=== PATIENT | female | born 1985 | race Caucasian/White ===

== ENCOUNTER → 2016-04-13 | Outpatient (CLI) | payer BC ==
[~2016-04-13] MED LIST: LEVO75TA5 PO; PREN1TAB29
[2016-04-13 17:37] LABS: GTGD 50 Grams
[2016-04-13 18:02] LABS: THYROID STIMULATING HORMONE 2.64 uIu/ml (0.300-4.500)
[2016-04-15 14:49] LABS: AFP CONCENTRATION 45.5 NG/ML; AFPTS GESTATIONAL AGE 16.1 WEEKS; AFPTS INSULIN DEP DIABETIC? NO; AFPTS MATERNAL WT 254 LBS; ALPHA-FETOPROTEIN RACE CAUCASIAN=W; EDD DETERMINED BY ULTRASOUND; ESTRIOL MULTIPLE OF MEDIAN 0.88; HISTORY OF NTD NO; INHIBIN A 136 PG/ML; INHIBIN A MOM 1.01; REPEAT SAMPLE? NO; hCG MULTIPLE OF MEDIAN 1.68
== END | disposition home or self-care (01) ==
LOC: C.LAB1850 16:59
PROVIDERS: ATTEND Obstetrics & Gynecology
DX: E03.9 Hypothyroidism, unspecified (principal); O09.01 Supervision of pregnancy with history of infertility, first trimester

== ENCOUNTER → 2016-04-25 | Outpatient (CLI) | payer BC ==
[2016-04-25 10:03] LABS: PATIENT HEIGHT 170.2 cm
[2016-04-25 12:02] LABS: URINE TOTAL PROTEIN 6.4 mg/dl (0-11.9)
[2016-04-25 12:57] LABS: CREATININE 0.56 mg/dl (0.6-1.2); URINE TOTAL PROTEIN CALC 131.2 mg/24 hr (0-149.1)
== END | disposition home or self-care (01) ==
LOC: C.LAB1850 09:42
PROVIDERS: ATTEND Obstetrics & Gynecology
DX: O09.02 Supervision of pregnancy with history of infertility, second trimester (principal); O28.1 Abnormal biochemical finding on antenatal screening of mother; Z3A.00 Weeks of gestation of pregnancy not specified

== ENCOUNTER → 2016-06-13 | Outpatient (CLI) | payer BC ==
[2016-06-13 18:17] LABS: THYROID STIMULATING HORMONE 1.03 uIu/ml (0.300-4.500)
== END | disposition home or self-care (01) ==
LOC: C.LAB1850 16:43
PROVIDERS: ATTEND Obstetrics & Gynecology
DX: O99.282 Endocrine, nutritional and metabolic diseases complicating pregnancy, second trimester (principal); E03.9 Hypothyroidism, unspecified

== ENCOUNTER → 2016-07-11 | Outpatient (CLI) | payer BC ==
[2016-07-11 09:34] LABS: HEMATOCRIT 35.5 % (37-47)
[2016-07-11 09:37] LABS: URINE APPEARANCE CLEAR (CLEAR); URINE BILIRUBIN NEG (NEG); URINE COLOR YELLOW; URINE EPITHELIAL CELL AUTO 20-30 /lpf (0-5); URINE NITRITE NEG (NEG); URINE PH 7.5 (4.5-7.5); URINE SPECIFIC GRAVITY 1.017 (1.000-1.030); UROBILINOGEN NEG (NEG)
[2016-07-11 09:43] LABS: MANUAL MICROSCOPIC REQUIRED? NO; REVIEW REQ? NO
[2016-07-11 09:59] LABS: THYROID STIMULATING HORMONE 1.44 uIu/ml (0.300-4.500)
== END | disposition home or self-care (01) ==
LOC: C.LAB1850 08:08
PROVIDERS: ATTEND Obstetrics & Gynecology
DX: O09.03 Supervision of pregnancy with history of infertility, third trimester (principal); O99.282 Endocrine, nutritional and metabolic diseases complicating pregnancy, second trimester

== ENCOUNTER → 2016-08-17 | Outpatient (CLI) | payer BC ==
[2016-08-17 10:32] LABS: THYROID STIMULATING HORMONE 0.938 uIu/ml (0.300-4.500)
== END | disposition home or self-care (01) ==
LOC: C.LAB1850 09:15
PROVIDERS: ATTEND Obstetrics & Gynecology
DX: O99.282 Endocrine, nutritional and metabolic diseases complicating pregnancy, second trimester (principal)

== ENCOUNTER → 2016-09-05 | Outpatient (CLI) | payer BC | END | disposition home or self-care (01) | LOC: C.LABSPEC 17:27 | PROVIDERS: ATTEND Obstetrics & Gynecology | DX: O09.03 Supervision of pregnancy with history of infertility, third trimester (principal); Z3A.00 Weeks of gestation of pregnancy not specified ==

== ENCOUNTER 2016-09-25 19:06 | Outpatient (CLI) | payer BC ==
[~2016-09-25] VITALS: Ht 167.6 cm; Wt 127.0 kg
[2016-09-25] MEDS ORDERED: LEVO75TA5 PO (19:52)
[2016-09-25] MEDS ORDERED: PREN1TAB29 (19:52)
[2016-09-25 19:53] VITALS: Ht 167.6 cm; Wt 127.0 kg
== END 2016-09-25 20:29 | disposition home or self-care (01) ==
LOC: C.OPB 19:06 → C.LD 19:07 → C.OPB 20:29
PROVIDERS: ATTEND Obstetrics & Gynecology
DX: O16.3 Unspecified maternal hypertension, third trimester (principal); Z3A.39 39 weeks gestation of pregnancy

== ENCOUNTER 2016-09-26 07:24 | Inpatient (IN) | payer BC ==
[~2016-09-26] VITALS: Ht 167.6 cm; Wt 129.3 kg
[2016-09-26 08:19] VITALS: Ht 167.6 cm; Wt 129.3 kg
[2016-09-26 08:58] LABS: HEMATOCRIT 35.7 % (37-47); MEAN CELL VOLUME 86.2 fL (80-100); MEAN CORPUSCULAR HGB CONC 33.6 g/dl (32-36); MEAN PLATELET VOLUME 9.6 fL (7.4-10.4); PLATELET COUNT 266 K/uL (130-400); RED BLOOD COUNT 4.14 M/uL (4.2-5.4); WHITE BLOOD COUNT 14.48 K/uL (4.8-10.8)
[2016-09-26] MEDS ORDERED: LACTATED RINGER'S 1000ML 500 ML IV PRN ×2 (09:04→16:48)
[2016-09-26] MEDS ORDERED: OXYTOCIN 30 UNITS/500ML NSS IV PRN ×2 (09:15→22:30)
[2016-09-26] MEDS ORDERED: LACTATED RINGER'S 1000ML 1,000 ML IV SCH ×2 (09:30→22:21)
--- NOTE | 2016-09-26 11:30 | Medical Student: [facility] ---
Med Student History & Physical Date of Service Sep 26, 2016. Chief Complaint Induction History of Present Illness Source: patient Pt is a 31 y.o. F with , CHELSEY of 09/27/2016 by 1st trimester US, 39 and 6/7 weeks of GA, presents for induction of labor. She reports good movement, intact membranes, and no vaginal bleeding. Does not report contractions. course has been complicated by hypothyroidism for which pt takes synthroid and maternal chronic HTN. No loss of fluid/SROM or vaginal bleeding. has been followed by Everette Suarez Senior Manager Creative Services. 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 Menarche at age 16, LMP was 12/29/2015, no hx of abnormal pap smears Past Surgical History ACL surgery Family History no pertinent family hx Social History Smoking Status: Never Smoker Drug Use: none Marital Status: Occupational Status: employed Allergies Coded Allergies: No Known Allergies (Unverified , 09/25/16) Home Medications Levothyroxine Sodium (Levothyroxine Sodium), 1 TAB PO DAILY Vit W/ Ferrous Fumara () Physical Exam General Appearance: WD/WN, no apparent distress Respiratory/Chest: lungs clear, normal breath sounds, no respiratory distress Cardiovascular: regular rate, rhythm - HR regular with no gallops or murmurs - lungs clear to auscultation bilaterally - soft, non-tender gravid uterus - no pedal edema, no calf tenderness Monitoring External Monitor: Baseline HR 140, moderate variability, no deceleration, Category 1 tracing Tocodynamometer: mild, irregular contractions Laboratory Results 09/26/16 08:39 Test 09/26/16 08:39 Red Blood Count 4.14 M/uL (4.2-5.4) Mean Corpuscular Volume 86.2 fL (80-100) Mean Corpuscular Hemoglobin 29.0 pg (25-34) Mean Corpuscular Hemoglobin Concent 33.6 g/dl (32-36) RDW Standard Deviation 44.5 fL (36.4-46.3) RDW Coefficient of Variation 14.3 % (11.5-14.5) Mean Platelet Volume 9.6 fL (7.4-10.4) Assessment and Plan Pt is a 31 y.o. who presents for induction of labor. She desires to not use anything for pain control but is not opposed to having an epidural. heart tracing Category 1. - admit to L&D unit - routine maternal/ monitoring - begin pitocin - NPO except ice chips and clear liquid - consider AROM as fetus moves further down into pelvis - anticipate
[2016-09-26] MEDS ORDERED: EpHEDrine SULFATE INJ 50 MG/ML AMP ONE (16:05)
[2016-09-26] MEDS ORDERED: BUPIVACAINE 0.25% 30 ML VIAL ONE (16:05)
[2016-09-26] MEDS ORDERED: FENTANYL 2MCG/ML ROPIV 1.25MG/ML 100ML BAG EPI ONE (16:06)
[2016-09-26] MEDS ORDERED: FENTANYL CITRATE INJ 50 MCG/1 ML 2 ML VIAL ONE (16:06)
[2016-09-26] MEDS ORDERED: NALOXONE HCL INJ 1 MG in SODIUM CHLORIDE 0.9% 1000ML 1,000 ML IV PRN (16:48)
[2016-09-26] MEDS ORDERED: FENTANYL 2MCG/ML ROPIV 1.25MG/ML 100ML BAG EPI PRN (17:00)
[2016-09-26] MEDS ORDERED: NALBUPHINE HCL INJ 10 MG/ML AMP IV PRN (17:00)
[2016-09-26] MEDS ORDERED: ONDANSETRON INJ 2 MG/ML 2 ML VIAL IV PRN (17:00)
[2016-09-26] MEDS ORDERED: EpHEDrine SULFATE INJ 50 MG/ML AMP IV PRN (17:00)
[2016-09-26] MEDS ORDERED: NALOXONE HCL INJ 0.4 MG/1 ML VIAL/CARP IV PRN (17:00)
[2016-09-26] MEDS ORDERED: DiphenhydrAMINE HCL 50 MG/ML VIAL IV PRN (17:00)
[2016-09-26] MEDS ORDERED: DIPHTHERIA/TETANUS/PERTUSSIS 0.5 ML SYR/VIAL IM. ONE (22:30)
[2016-09-26] MEDS ORDERED: SUPERCREAM 0.870 % 15GM JAR EXT PRN (22:30)
[2016-09-26] MEDS ORDERED: LANOLIN OINT EXT PRN ×2 (22:30)
[2016-09-26] MEDS ORDERED: HYDROCORTISONE ACETATE 25 MG SUPP PR PRN (22:30)
[2016-09-26] MEDS ORDERED: ACETAMINOPHEN 325 MG TAB PO PRN (22:30)
--- NOTE | 2016-09-27 00:15 | DELIVERY SUMMARY ---
DATE OF OPERATION: 09/26/2016 PREOPERATIVE DIAGNOSES: 1. Martinez intrauterine at 39 and 6/7 weeks. 2. Chronic hypertension. 3. Induction of labor. POSTOPERATIVE DIAGNOSES: Same. PROCEDURE: Spontaneous vaginal delivery and repair of second degree laceration. SURGEON: Dr. Taylor. EXECUTIVE CREATIVE DIRECTOR: None. ESTIMATED BLOOD LOSS: 350. COMPLICATIONS: None. DISPOSITION: Stable in labor and delivery. DESCRIPTION OF PROCEDURE: Cyndy Matos is a G1, P0 who underwent induction of labor via Pitocin, artificial rupture of membranes, and an epidural for pain management. She reached complete dilation with an urge to push. I was called to the room at the time the head was . I quickly gowned and gloved for delivery. Through the next 2 pushes, she was able to bring the head to delivery. The restituted such that the right shoulder was anterior and the left shoulder was posterior. The remainder of the delivery was without any difficulty whatsoever. The vigorous was placed on the maternal abdomen where the cord was doubly clamped and cut. The placenta delivered spontaneously and was noted to be intact with a 3-vessel cord. There was a second degree perineal laceration that was repaired in the usual fashion. At the completion of delivery, the fundus was firm, lochia was minimal and mother and infant were both in good condition. I attest to the content of the Intraoperative Record and any orders documented therein. Any exception s are noted below.
[2016-09-27] MEDS: BENZOCAINE 20% AER SPR 82.5 GM CAN EXT PRN (00:28)
[2016-09-27 00:45] VITALS: BP 135/72; PULSE 116; TEMP 36.5
[2016-09-27 04:35] VITALS: BP 124/78; PULSE 89; TEMP 36.4
[2016-09-27] MEDS: OXYCODONE/ACETAMINOPHEN 5-325 TAB PO PRN ×2 (06:34→12:49)
[2016-09-27] MEDS: IBUPROFEN 600 MG TAB PO PRN ×3 (06:34→16:38)
[2016-09-27 06:35] LABS: HEMATOCRIT 33.5 % (37-47)
--- NOTE | 2016-09-27 07:03 | OB/GYN Progress Note ---
GI ASST Progress Note Date of Service Sep 27, 2016. Subjective conversation w/ patient, physical exam, chart review, lab review Ambulation: limited ambulation (up to bathroom) Voiding: no voiding problems Passing Gas: Yes Diet Tolerance: Regular Diet Lochia: Small Feeding Type: Breast Feeding Pain: Low abd discomfort and cramping Review of Systems Constitutional: No fever, No chills Respiratory: No cough, No shortness of breath Cardiac: No chest pain Abdomen: No nausea, No vomiting, No diarrhea Female : No dysuria Objective Vital Signs Date Time Temp Pulse Resp B/P (MAP) Pulse Ox O2 Delivery O2 Flow Rate FiO2 09/27/16 04:35 36.4 89 20 124/78 (93) Room Air 09/27/16 00:45 36.5 116 20 135/72 (93) Room Air 09/27/16 00:45 Room Air Physical Exam General Appearance: WELL-APPEARING, WD/WN, NO APPARENT DISTRESS Respiratory/Chest: lungs clear, normal breath sounds Cardiovascular: regular rate, rhythm Abdomen: normal bowel sounds, non tender, soft Fundus: Firm, Non-Tender, Relation to Umbilicus (approx at umbilicus) Extremities: normal range of motion, non-tender, no calf tenderness, + pedal edema, + swelling (bilateral 1+ leg edema, unchanged from yesterday) Laboratory Results Last 24 Hours Test 09/26/16 08:39 09/27/16 06:10 White Blood Count 14.48 K/uL Red Blood Count 4.14 M/uL Hemoglobin 12.0 g/dL 11.2 g/dL Hematocrit 35.7 % 33.5 % Mean Corpuscular Volume 86.2 fL Mean Corpuscular Hemoglobin 29.0 pg Mean Corpuscular Hemoglobin Concent 33.6 g/dl RDW Standard Deviation 44.5 fL RDW Coefficient of Variation 14.3 % Platelet Count 266 K/uL Mean Platelet Volume 9.6 fL Assessment and Plan Post- Day Number: 1 Continue Routine Care: 31yo s/p , now PPD #1. - Blood type O pos. GBS negative. Rubella immune. - Vital signs reviewed and stable. Rxed home thyroid medication for while here. - Pain controlled without PO meds thus far. - Has some symmetrical (B)LE edema but no tenderness on calf palpation or ankle ROM. Encourage ambulation. - Encourage breast feeding. - Hemoglobin pre-delivery 12.0, post-delivery 11.2. Bleeding has improved. Continue to monitor clinically. - Continue routine post-vaginal delivery care. - Pt agreed with above plan, all current questions answered. Toni Aguilar MD, PGY1 Calciner Operator Helper Physician Supervision Note: I interviewed and examined the patient. Discussed with Dr. Aguilar and agree with findings and plan as documented in the note. Any exceptions or clarifications are listed here: [None] Documented By: Fidelia Taylor Resident Tracking Resident Involvement: Resident Care Provided Care Provided: OB Delivery (morning rounds)
[2016-09-27] MEDS: LEVOTHYROXINE 75 MCG TAB PO SCH (07:07)
[2016-09-27 07:50] VITALS: BP 143/84; PULSE 87; TEMP 36.3
[2016-09-27] MEDS: DOCUSATE SODIUM 100 MG CAP PO SCH ×2 (08:01→19:53)
[2016-09-27] MEDS: PRENATAL VITAMIN TAB PO SCH (08:01)
--- NOTE | 2016-09-27 10:19 | Anesthesia Procedure Note ---
Anesthesia Epidural Removal Nt Date & Time Sep 27, 2016 at 10:19 Vital Signs Pain Intensity: 0.0 Vital Signs Past 12 Hours Date Time Temp Pulse Resp B/P (MAP) Pulse Ox O2 Delivery O2 Flow Rate FiO2 09/27/16 07:50 36.3 87 20 143/84 (103) 09/27/16 04:35 36.4 89 20 124/78 (93) Room Air 09/27/16 00:45 36.5 116 20 135/72 (93) Room Air 09/27/16 00:45 Room Air Notes Mental Status: alert / awake / arousable, participated in evaluation Nausea / Vomiting: adequately controlled Pain: adequately controlled Airway Patency, RR, SpO2: stable & adequate BP & HR: stable & adequate Hydration State: stable & adequate Neuraxial Anesthesia: was administered Anesthetic Complications: no major complications apparent, pt satisfied with anesthetic care Epidural: removed without complications, with tip intact
[2016-09-27 16:30] VITALS: BP 131/88; PULSE 80; TEMP 36.4
[2016-09-27 20:25] VITALS: BP 130/85; PULSE 88; TEMP 36.3
[2016-09-28 00:20] VITALS: BP 139/87; PULSE 86; TEMP 36.4
[2016-09-28] MEDS: IBUPROFEN 600 MG TAB PO PRN ×3 (00:21→09:51)
--- NOTE | 2016-09-28 06:41 | OB/GYN Progress Note ---
LOSS PREVENTION AUDITOR Progress Note Date of Service Sep 28, 2016. Subjective conversation w/ patient, physical exam, chart review, lab review Ambulation: ambulating normally Voiding: no voiding problems Passing Gas: Yes Diet Tolerance: Regular Diet Lochia: Small Feeding Type: Breast Feeding Pain: Denies much pain/cramping. Review of Systems Constitutional: No fever, No chills Respiratory: No shortness of breath Cardiac: No chest pain Abdomen: No nausea, No vomiting, No diarrhea Female : No dysuria Objective Vital Signs Date Time Temp Pulse Resp B/P (MAP) Pulse Ox O2 Delivery O2 Flow Rate FiO2 09/28/16 00:20 Room Air 09/28/16 00:20 36.4 86 20 139/87 (104) Room Air 09/27/16 20:25 36.3 88 20 130/85 (100) Room Air 09/27/16 16:30 36.4 80 20 131/88 (102) Room Air 09/27/16 16:30 Room Air 09/27/16 07:50 36.3 87 20 143/84 (103) Physical Exam General Appearance: WELL-APPEARING, WD/WN, NO APPARENT DISTRESS Respiratory/Chest: lungs clear, normal breath sounds Cardiovascular: regular rate, rhythm Abdomen: normal bowel sounds, non tender, soft Fundus: Firm, Non-Tender, Relation to Umbilicus (at umbilicus) Extremities: normal range of motion, non-tender, + pedal edema, + swelling ((B ) 1+ edema, grossly unchanged from yesterday) Assessment and Plan Post- Day Number: 2 Continue Routine Care: 31yo s/p , now PPD #2. - Blood type O pos. GBS negative. Rubella immune. - Vital signs reviewed and stable. Rxed home thyroid medication for while here. Also hx chronic HTN. - Pain controlled with motrin & percocet. - Ongoing (B) 1+ distal leg edema. No tenderness on calf palpation or ankle movement (B). Continuing to encourage ambulation. - Encourage breast feeding. - Hemoglobin pre-delivery 12.0, post-delivery 11.2. Continue to monitor clinically. - Continue routine post-vaginal delivery care. - Pt agreed with above plan, all current questions answered. Toni Aguilar MD, PGY1 Gleason Operator Physician Supervision Note: I interviewed and examined the patient. Discussed with Dr. Aguilar and agree with findings and plan as documented in the note. Any exceptions or clarifications are listed here: [None] Documented By: Virgilio Erickson Resident Tracking Resident Involvement: Resident Care Provided Care Provided: OB Delivery (morning rounds)
--- NOTE | 2016-09-28 06:59 | Discharge Instructions ---
Discharge Instructions Date of Service Sep 28, 2016. Admission Reason for Admission: Induction Discharge Discharge Diagnosis / Problem: Recovery after vaginal delivery Discharge Goals Goal(s): Routine recovery after delivery Medications Continue Dispensed Medications: supercream, dermaplast, tucks, lansinoh Activity Recommendations Activity Limitations: per Instructions/Follow-up section . Instructions / Follow-Up Instructions / Follow-Up ACTIVITY RECOMMENDATIONS: * Gradual return to full activity over the next 2-3 weeks. * No lifting - nothing heavier than baby over the next 2-3 weeks. * Do not engage in vigorous exercise, sexual activity or sports until cleared by your physician. * Do not drive or operate any motorized equipment until cleared by your physician. * You may shower/bathe daily. MEDICATIONS: For discomfort or pain, you may use Acetaminophen (Tylenol), Ibuprofen (Advil), or Naproxen (Aleve) following the package directions. For constipation you may use Colace following the package directions. BREAST CARE: If you are not breast feeding: * Wear a supportive bra 24 hours a day for one to two weeks. * Avoid stimulating your breasts and nipples as much as possible during the first few weeks after delivery. * When taking a shower, have the warm water hit your back, not breasts. * When your breasts feel full, apply ice packs. Usually three to four times a day helps ease the discomfort. * Take a mild pain medication (Tylenol / Motrin) when you are uncomfortable. If breast feeding: * Use breast milk to lubricate nipples. Lansinoh cream may be used for sore nipples. You do not need to remove cream prior to breast feeding. If using a different brand of cream, check the label for directions regarding removal of cream prior to nursing. * Wear a supportive bra. * If having problems with breasts or breast feeding, call a rewards consultant or your health care provider. EPISIOTOMY CARE: After delivery, if you have an episiotomy (stitches), the following steps will ease discomfort and aid healing. * For the first 24 hours after delivery, place ice packs next to your episiotomy to help reduce swelling. * After the first 24 hour-period, sitz baths, either portable or in the tub, are suggested. A shower with a shower arm sprayed over the episiotomy may be comforting. * Gilma care should be done after each voiding and bowel movement. Squirt warm water from a plastic bottle over the perineum (region of the body between the anus and urinary opening) and pat dry. * Use Dermoplast to ease discomfort. Shake container. [place] directly over the episiotomy. Place a Tucks on a clean sanitary pad next to your episiotomy. SPECIAL CARE INSTRUCTIONS: When you are discharged from the hospital, it is important for you to follow the instructions listed below: * During the first week at home, you should be able to care for yourself and your baby. In addition, the usual light household activities are encouraged. * Limit your activities to the way you feel. Do not try to clean the house or move furniture. Be sensible. * If you actively engage in sports and have done so up until the time of your delivery, you may resume these activities as soon as you feel able. This may take up to one month or even longer. Use good judgment. * Continue to take your vitamins for at least six weeks after the of your baby. * Your diet need not be limited unless you were on a special diet before your delivery. Breast-feeding mothers need around 2500 calories per day and at least 64-80 ounces of fluid per day (8 to 10 glasses). * You should eat foods from the four major food groups. Crash diets or fad diets are to be avoided. Eating lean meats, fresh fruits and vegetables, low-fat dairy products, high fiber foods and a regular exercise program, will help you get back to your pre- weight without putting your health at risk. * Constipation is sometimes a problem after delivery. Take a mild laxative as needed. If breast feeding, Milk of Magnesia is acceptable to use. You may use a suppository or Fleets enema if no episiotomy. * A daily shower or tub bath is suggested. Be sure to thoroughly and gently dry the perineum. * A bloody vaginal discharge will usually continue until around four weeks post . A small amount of bleeding may continue for as long as six weeks. Vaginal discharge changes from the bright red bleeding after delivery to pink then brownish and finally yellowish-pink before becoming white and disappearing. * Bleeding may increase with activity. Your first period may come in 4-8 weeks. If you are breast feeding, your period may be delayed even longer. * [place] (sex) can begin whenever both you and your partner feel comfortable and do not have any form of genital infection. It is recommended that you wait at least six weeks for internal and external healing to occur. If you have questions, please talk to your health care practitioner. A condom should be used to prevent infection and . * Foreplay, gentle intercourse and lubrication is very important the first several times to prevent pain. A water-based lubricant such as K-Y jelly or Astroglide may be used. * If you have RH negative blood and your baby is RH positive, you will receive RHOGAM by injection prior to discharge. The nurse will give you a card to keep with you that has the date and place that you received RHOGAM after delivery. * During your care, you had a Rubella screen done to check for the presence of rubella antibodies in your blood. If your test was negative, you will receive a Rubella vaccine prior to discharge. This vaccine may cause a fever, soreness at the injection site and flu-like symptoms. If these symptoms persist, notify your health care practitioner. is not advised for one month after a Rubella vaccine. * Verbalizes understanding of car seat law as reviewed with patient nursing. * Car Seat hand-out given and reviewed with patient by nursing. * Shaken baby information reviewed with patient by nursing. Call you doctor if: * Heavy bleeding (saturating several pads an hour) or passing clots the size of your fist. * A fever >101 degrees F (38.3 degrees C) on two occasions four hours apart and /or chills. * Unusual pain in the pelvic or vaginal areas. * "Baby Blues" lasting longer than two weeks. If you have any questions or concerns, call your health care practitioner at . FOLLOW UP VISIT: * Please call the office at to schedule a 6 week examination. It is important you keep this appointment. It is important for you to make arrangements for either yearly or twice yearly check-ups thereafter. Current Hospital Diet Patient's current hospital diet: Regular OB Diet Discharge Diet Recommended Diet: Regular OB Diet Pending Studies Studies pending at discharge: no Medical Emergencies . Who to Call and When: Medical Emergencies: If at any time you feel your situation is an emergency, please call 911 immediately. . Non-Emergent Contact Non-Emergency issues call your: Inspector Watch Train . . "Provider Documentation" section prepared by Toni Aguilar. . VTE Core Measure Inpt VTE Proph given/why not?: Treatment not indicated
[2016-09-28 07:15] VITALS: BP 146/99; PULSE 80; TEMP 36.3; O2SAT 99
[2016-09-28] MEDS: LEVOTHYROXINE 75 MCG TAB PO SCH (07:38)
[2016-09-28] MEDS: PRENATAL VITAMIN TAB PO SCH (07:38)
[2016-09-28] MEDS: DOCUSATE SODIUM 100 MG CAP PO SCH (07:39)
[2016-09-28] MEDS: BENZOCAINE 20% AER SPR 82.5 GM CAN EXT PRN (10:40)
[2016-09-28 12:35] VITALS: BP_DIAS 99; PULSE 80; TEMP 36.3
== END 2016-09-28 12:35 | disposition home or self-care (01) | DRG 774 ==
LOC: C.LD 07:24 → C.OBG 09-27 00:54
PROVIDERS: ADMIT Obstetrics & Gynecology; ATTEND Obstetrics & Gynecology
PROC: 0U7C7ZZ Dilation of Cervix, Via Natural or Artificial Opening (ICD-10-PCS; principal; 2016-09-26)
PROC: 0KQM0ZZ Repair Perineum Muscle, Open Approach (ICD-10-PCS; principal; 2016-09-26)
PROC: 10907ZC Drainage of Amniotic Fluid, Therapeutic from Products of Conception, Via Natural or Artificial Opening (ICD-10-PCS; principal; 2016-09-26)
PROC: 10E0XZZ Delivery of Products of Conception, External Approach (ICD-10-PCS; principal; 2016-09-26)
PROC: 3E033VJ Introduction of Other Hormone into Peripheral Vein, Percutaneous Approach (ICD-10-PCS; principal; 2016-09-26)
DX: O10.92 Unspecified pre-existing hypertension complicating childbirth (principal); O99.42 Diseases of the circulatory system complicating childbirth; Z68.42 Body mass index [BMI] 45.0-49.9, adult; O76 Abnormality in fetal heart rate and rhythm complicating labor and delivery; O70.1 Second degree perineal laceration during delivery; O99.214 Obesity complicating childbirth; E66.9 Obesity, unspecified; O99.284 Endocrine, nutritional and metabolic diseases complicating childbirth; E06.3 Autoimmune thyroiditis; R01.1 Cardiac murmur, unspecified; Z37.0 Single live birth; Z3A.39 39 weeks gestation of pregnancy

== ENCOUNTER → 2017-05-17 | Outpatient (CLI) | payer BC | END | disposition home or self-care (01) | LOC: C.LAB1850 16:37 | PROVIDERS: ATTEND Internal Medicine Endocrinology, Diabetes & Metabolism | DX: E03.9 Hypothyroidism, unspecified (principal) ==

== ENCOUNTER → 2017-07-24 | Outpatient (CLI) | payer BC | END | disposition home or self-care (01) | LOC: C.LAB1850 16:08 | PROVIDERS: ATTEND Internal Medicine Endocrinology, Diabetes & Metabolism | DX: E03.9 Hypothyroidism, unspecified (principal); E06.3 Autoimmune thyroiditis ==

== ENCOUNTER → 2017-10-16 | Outpatient (CLI) | payer BC | END | disposition home or self-care (01) | LOC: C.LAB1850 15:34 | PROVIDERS: ATTEND Internal Medicine Endocrinology, Diabetes & Metabolism | DX: E03.9 Hypothyroidism, unspecified (principal) ==

== ENCOUNTER 2019-05-27 09:49 | Inpatient (IN) ==
--- NOTE | 2019-05-27 10:29 | History & Physical Report ---
Date of Service May 27, 2019 Assessment & Plan (1) Post-dates : Patient is postdates and was scheduled for induction tomorrow I think it prudent to just start her induction today. heart rate tracing is category 1 right now however I think there were some concerns with variables earlier I will start Pitocin as I prefer this over prostaglandin. It is removable if the baby does not tolerate labor. Patient is a multipara I will avoid cervical Knight at this time. Group B strep negative reviewed if the baby does not tolerate labor what the plan would be History of Present Illness Primary Care Provider: Jena Cha Patient who is scheduled for induction tomorrow is sent over because her nonstress test shows possibly some variable decelerations to be noticed the baby has had primarily accelerations over here while observed in labor and delivery however the baseline is somewhat elevated in the 170s.. She states the baby has been moving actively she has no leakage of fluid no bleeding Her has been generally uncomplicated she was sent for induction for postdates Allergies Allergy/AdvReac Type Severity Reaction Status Date / Time No Known Allergies Allergy Verified 05/27/19 08:43 Home Medications Home Medications Medication Instructions Recorded Confirmed Type levothyroxine 137 mcg capsule 137 mcg PO DAILY #30 cap 11/09/18 05/27/19 Rx aspirin 81 mg tablet,delayed 81 mg PO DAILY 12/04/18 05/27/19 History release PNV cmb#[id number]-ferrous fumarate-FA 1 tab PO DAILY 04/09/19 05/27/19 History [] Patient History Social History marital status: marital status details: Issac Matos (34) [phone] Current Living Situation: Family Current Living Situation Comment: dog current occupational status: employed 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 [employer] Feels Safe at Home: Yes Smoking Status: Never smoker Hx Alcohol Use: No Hx Substance Use: No Physical Exam Constitutional: WD/WN, vitals as above Respiratory: normal respiratory effort, lungs clear to auscultation Cardiovascular: RRR, no murmur, no edema Gastrointestinal (Abdomen): normal bowel sounds, soft, nontender, no hepatosplenomegaly Genitourinary: Manual OB Exam: + cervical dilation 1 cm, + cervical effacement 50% and + station -2 OB Exam Monitor Tracing: + external FHT monitor used Results & Data Vital Signs (Past 12 Hours) Vital Signs Pulse BP 05/27/19 10:15 116 H 131/88 Coding Level of Care Code None Diagnoses Post-dates O48.0
[2019-05-27] MEDS ORDERED: OXYTOCIN 30 UNITS/500 ML BAG IV PRN ×3 (10:31→21:56)
[2019-05-27] MEDS: LACTATED RINGER'S 1,000 ML IV PRN ×3 (10:37→20:26)
[2019-05-27 10:54] LABS: Hematocrit (blood only) 36.7 % (37-47); Hemoglobin 12.4 g/dL (12.0-16.0); Mean Corpuscular Volume 85.9 fL (80-100); Mean Platelet Volume 9.7 fL (7.4-10.4); Platelet Count 286 K/uL (130-400); RDW Coefficient of Variation 13.8 % (11.5-14.5); RDW Standard Deviation 42.8 fL (36.4-46.3); Red Blood Count 4.27 M/uL (4.2-5.4); White Blood Count 11.56 K/uL (4.8-10.8)
[2019-05-27 10:55] LABS: Mean Corpuscular Hgb Conc 33.8 g/dL (32-36)
--- NOTE | 2019-05-27 15:14 | Obstetrical Progress Note ---
Date of Service SROM. FHR cat May 27, 2019 Results & Data Vital Signs (Past 12 Hours) Vital Signs Temp Pulse Resp BP 05/27/19 13:44 89 137/80 05/27/19 11:55 90 135/84 05/27/19 11:16 98.1 F 20 05/27/19 10:15 116 H 131/88 PG Care Time/CCT Total # of Minutes Spent Total Time Spent with Patient: Total time spent is greater than 50% in coordination of care (as documented) at patient's floor/unit and/or counseling patient: Coding Level of Care Code None
[2019-05-27] MEDS ORDERED: BUPIVACAINE 0.25% 30 ML VIAL ONE (15:52)
[2019-05-27] MEDS ORDERED: ePHEDrine sulfate 50 MG/ML AMP ONE (15:52)
[2019-05-27] MEDS ORDERED: fentaNYL 2MCG/ML ROPIV 1.25MG/ML 100 ML BAG EPI ONE (15:53)
[2019-05-27] MEDS ORDERED: fentaNYL citrate 100 MCG/2 ML VIAL ONE (15:53)
--- NOTE | 2019-05-27 16:03 | Anesthesiology Consultation ---
Date of Service May 27, 2019 Assessment & Plan (1) Encounter for pre-operative examination: Chart Review Chart Review: Acceptable Risk for Labor Epidural Consults Requested none ASA ASA3 Proposed Anesthesia Anesthesia Type: Labor Epidural Risk / Benefits Reviewed With: PT / POA / Parent / Guardian, Accepts Plan and Informed Consent Obtained History Height/Weight Height: 5 ft 6 in Weight: 127.006 kg Allergies Allergy/AdvReac Type Severity Reaction Status Date / Time No Known Allergies Allergy Verified 05/27/19 08:43 Medications Home Medications Medication Instructions Recorded Confirmed Last Taken aspirin 81 mg PO DAILY 05/27/19 05/27/19 05/27/19 07:00 levothyroxine 137 mcg PO DAILY 05/27/19 05/27/19 05/27/19 07:00 vit-iron fum-folic ac 1 tab PO DAILY 05/27/19 05/27/19 05/27/19 07:00 [ Vitamin] Active Medications Generic Name Dose Route Start Last Admin Trade Name Freq PRN Reason Stop Dose Admin Lactated Ringer's 1,000 mls @ 125 mls/hr 05/27/19 10:31 05/27/19 15:46 Lr IV 05/29/19 10:30 999 mls/hr .Q8H PRN Infusion L&D Protocol Protocol Oxytocin 30 units in 500 mls @ 9 mls/hr 05/27/19 10:32 05/27/19 15:12 Pitocin IV 05/29/19 10:31 0.54 units/hr .Q24H PRN 9 mls/hr Labor Induction/Augmentation Titration Protocol 0.54 UNITS/HR Past Medical History Medical History Evaluate anatomy not seen on prior sonogram Varicella Exercise / Class Metabolic Activity II 4-5 Yardwork/Stairs/Walk up hill Past Family History Family History Grandfather (Maternal) Diabetes Grandmother (Maternal) Thyroid disease Grandmother (Paternal) Breast cancer Past Surgical History Surgical History S/P anterior cruciate ligament surgery S/P shoulder surgery S/P wisdom tooth extraction Past Anesthesia History No Hx of Anesthesia Complications and No Family Hx of Anesthesia Complications History of PONV No Hx of PONV and No Hx of Motion Sickness Social History Smoking Status: Never smoker Hx Alcohol Use: No Hx Substance Use: No substance use type: does not use Physical Exam Vital Signs Last Vital Signs Temp 98.1 F 05/27/19 11:16 Pulse 89 05/27/19 13:44 Resp 20 05/27/19 11:16 BP 137/80 05/27/19 13:44 ENMT Mouth: no dentition abnormality Thyromental Distance: > or= 3.5 Finger Breadths Mallampati Class: II Neck normal visual inspection Respiratory normal respiratory effort Auscultation: lungs clear to auscultation bilaterally Cardiovascular Rate/Rhythm: regular rate and regular rhythm Testing Laboratory Results 05/27/19 10:43
[2019-05-27] MEDS ORDERED: ONDANSETRON INJ 2 MG/ML 2 ML VIAL IV PRN (16:33)
[2019-05-27] MEDS ORDERED: NALBUPHINE HCL INJ 10 MG/ML AMP IV PRN (16:33)
[2019-05-27] MEDS ORDERED: NALOXONE HCL 1 MG in SODIUM CHLORIDE 0.9% 1000ML 1,000 ML IV PRN (16:33)
[2019-05-27] MEDS ORDERED: ePHEDrine sulfate 50 MG/ML AMP IV PRN (16:33)
[2019-05-27] MEDS ORDERED: DiphenhydrAMINE HCL 50 MG/ML VIAL IV PRN (16:33)
[2019-05-27] MEDS ORDERED: fentaNYL 2MCG/ML ROPIV 1.25MG/ML 100 ML BAG EPI PRN (16:33)
[2019-05-27] MEDS ORDERED: NALOXONE HCL 0.4 MG/1 ML VIAL/CARP IV PRN (16:33)
--- NOTE | 2019-05-27 20:37 | Labor Progress Brief Note ---
Date of Service May 27, 2019 Subjective Comfortable with epidural. 4cm on last exam by RN, changed from arrival dilation of 1cm. FHT Cat 1 [place] Q 2 Continue pitocin. Results & Data Vital Signs (Past 12 Hours) Vital Signs Temp Pulse Resp BP Pulse Ox 05/27/19 20:33 71 129/77 05/27/19 20:31 81 128/103 H 05/27/19 20:29 72 97 05/27/19 20:24 78 97 05/27/19 20:19 70 97 05/27/19 20:16 77 135/91 05/27/19 20:14 82 98 05/27/19 20:09 75 98 05/27/19 20:04 87 97 05/27/19 20:01 76 117/64 05/27/19 20:00 18 05/27/19 19:59 76 97 05/27/19 19:54 95 H 97 05/27/19 19:49 81 98 05/27/19 19:48 94 H 136/70 05/27/19 19:44 85 97 05/27/19 19:39 83 98 05/27/19 19:34 98 05/27/19 19:32 70 133/84 05/27/19 19:30 18 05/27/19 19:29 75 97 05/27/19 19:24 84 98 05/27/19 19:19 87 98 05/27/19 19:17 73 133/80 05/27/19 19:14 87 98 05/27/19 19:09 81 100 05/27/19 19:04 83 98 05/27/19 19:02 82 124/81 05/27/19 19:00 36.6 C 20 05/27/19 18:59 82 98 05/27/19 18:57 36.6 C 20 05/27/19 18:56 87 125/81 05/27/19 18:54 74 99 05/27/19 18:49 86 97 05/27/19 18:47 89 120/79 05/27/19 18:44 86 98 05/27/19 18:39 80 97 05/27/19 18:34 73 97 05/27/19 18:30 96 H 125/68 05/27/19 18:29 86 98 05/27/19 18:24 71 97 05/27/19 18:19 85 99 05/27/19 18:16 83 131/72 05/27/19 18:14 81 98 05/27/19 18:09 76 98 05/27/19 18:04 88 98 05/27/19 18:01 36.7 C 88 20 125/73 20 17:59 70 97 05/27/19 17:54 70 97 05/27/19 17:49 73 98 05/27/19 17:46 98 H 127/74 05/27/19 17:44 78 98 05/27/19 17:39 78 98 05/27/19 17:34 80 98 05/27/19 17:30 83 126/77 05/27/19 17:29 72 97 05/27/19 17:24 72 97 05/27/19 17:19 78 97 05/27/19 17:15 96 H 121/76 05/27/19 17:14 86 98 05/27/19 17:09 113 H 98 05/27/19 17:04 89 98 05/27/19 17:01 83 121/75 05/27/19 16:59 90 18 98 05/27/19 16:54 88 98 05/27/19 16:49 74 99 05/27/19 16:44 83 99 05/27/19 16:43 36.7 C 101 H 20 121/69 05/27/19 16:39 101 H 99 05/27/19 16:36 98 H 121/71 05/27/19 16:35 106 H 120/73 05/27/19 16:34 101 H 98 05/27/19 16:33 116 H 136/81 05/27/19 16:29 86 98 05/27/19 16:24 97 H 97 05/27/19 16:19 90 96 05/27/19 16:14 85 96 05/27/19 16:09 86 98 05/27/19 16:04 98 H 98 05/27/19 13:44 89 137/80 05/27/19 11:55 90 135/84 05/27/19 11:16 36.7 C 20 05/27/19 10:15 116 H 131/88 Coding Level of Care Code None
--- NOTE | 2019-05-27 21:54 | Anesthesia Procedure Note ---
Date of Service May 27, 2019 Anesthesia Post Epidural Note Vital Signs Vital Signs: Temp Pulse Resp BP Pulse Ox 36.6 C 87 20 127/86 97 05/27/19 19:00 05/27/19 21:39 05/27/19 20:30 05/27/19 21:39 05/27/19 21:39 Notes Mental Status: alert / awake / arousable and participated in evaluation Patient Amnestic to Procedure: No Nausea / Vomiting: adequately controlled Pain: adequately controlled Airway Patency, RR, SpO2: stable & adequate BP & HR: stable & adequate Hydration State: stable & adequate Neuraxial Anesthesia: was administered and sensory block is resolving Anesthetic Complications: no major complications apparent and Pt Satisfied with anesthetic care Epidural: Removed without complications and With tip intact
--- NOTE | 2019-05-27 21:55 | Delivery Summary ---
Vaginal Delivery Summary Date of Service May 27, 2019 Vaginal Delivery Summary Vaginal Delivery Summary: Pre-delivery diagnoses: 34yo @ 40 6/7, induction of labor for postdates, maternal obesity, hypothyroidism, h/o preeclampsia in prior Post-delivery diagnoses: same Procedure: spontaneous vaginal delivery, repair of 1st degree perineal laceration Surgeon: Danya Hawkins DO Complications: none Findings: Viable female . Apgars: 9/10 . Weight pending, please see nursery records Estimated blood loss: 300ml Description of delivery: The patient progressed to complete with epidural anesthesia. She then began to push. She spontaneously vaginally delivered a viable from the cephalic presentation. The head delivered in DAVID position. The anterior shoulder delivered with the posterior hand at the same time, followed by the posterior shoulder, followed by the body. The baby was placed on mother's abdomen and a spontaneous cry was heard. Delayed cord clamping was employed, and the cord was doubly clamped and cut. Cord blood was obtained. The placenta was delivered spontaneously intact with a 3-vessel cord. The uterus and vagina were swept of clots and debris. IV pitocin was given. The uterus became firm. The cervix, vagina, and perineum were inspected and a first degree perineal laceration was noted and repaired in standard fashion with 3-0 vicryl. Excellent hemostasis was observed. The mother and baby are recovering in stable and good condition in the room. Sponge, needle and instrument counts were correct x 2. Danya Hawkins DO [facility] [place]
[2019-05-27] MEDS ORDERED: DIPHTHERIA/TETANUS/PERTUSSIS 0.5 ML SYR/VIAL IM ONE (21:56)
[2019-05-27] MEDS ORDERED: BENZOCAINE 20% AER SPR 82.5 GM CAN EXT PRN (21:56)
[2019-05-27] MEDS ORDERED: ACETAMINOPHEN 325 MG TAB PO PRN (21:56)
[2019-05-27] MEDS ORDERED: OXYCODONE/ACETAMINOPHEN 5mg/325mg TAB PO PRN (21:56)
[2019-05-27] MEDS ORDERED: SUPERCREAM 0.870% 15 GM JAR EXT PRN (21:56)
[2019-05-27] MEDS ORDERED: HYDROCORTISONE ACETATE 25 MG SUPP PR PRN (21:56)
[2019-05-27] MEDS ORDERED: bisacodyL 10 MG SUPP PR PRN (21:56)
[2019-05-28] MEDS: IBUPROFEN 600 MG TAB PO PRN ×5 (02:16→21:45)
[2019-05-28] MEDS: LEVOTHYROXINE SODIUM 137 MCG TABLET PO SCH (06:25)
[2019-05-28 06:35] LABS: Hematocrit (blood only) 35.2 % (37-47); Hemoglobin 11.5 g/dL (12.0-16.0)
--- NOTE | 2019-05-28 08:19 | Obstetrical Progress Note ---
Date of Service May 28, 2019 Assessment & Plan (1) : PPD#1 doing well. Would like to stay until tomorrow. Weeks of gestation: 34 weeks Qualified Code(s): Z3A.34 - 34 weeks gestation of Subjective Ambulation: ambulating normally Voiding: no voiding problems Diet Tolerance:: regular diet Lochia:: Moderate Feeding Type:: breast feeding PPD#1 doing well. Review of Systems All systems reviewed & are unremarkable except as noted in HPI & below Physical Exam Constitutional WD/WN, vitals as above no acute distress Respiratory normal respiratory effort Cardiovascular Rate/Rhythm: regular rate and regular rhythm Gastrointestinal (Abdomen) Inspection/Auscultation: abdomen normal to inspection; abdomen not distended Percussion/Palpation: abdomen soft Genitourinary OB Exam Abdomen: + fundal height Fundus: + firm; not tender Results & Data Vital Signs (Past 12 Hours) Vital Signs Temp Pulse Pulse Resp BP BP Pulse Ox 05/28/19 03:40 36.4 C L 76 16 128/83 05/27/19 23:45 36.9 C 85 16 129/86 94 05/27/19 23:30 93 H 127/69 05/27/19 23:25 85 18 121/72 05/27/19 23:07 36.9 C 18 05/27/19 22:55 18 130/68 05/27/19 22:54 78 05/27/19 22:40 81 144/86 H 05/27/19 22:25 100 H 20 145/73 H 05/27/19 22:13 79 143/70 H 05/27/19 22:10 94 H 18 190/82 H 05/27/19 21:55 100 H 18 162/74 H 05/27/19 21:40 36.5 C 18 05/27/19 21:39 87 127/86 97 05/27/19 21:34 93 H 98 05/27/19 21:29 103 H 98 05/27/19 21:24 102 H 98 05/27/19 21:19 91 H 98 05/27/19 21:16 81 134/85 05/27/19 21:14 84 97 05/27/19 21:09 86 97 05/27/19 21:04 79 98 05/27/19 20:59 100 H 98 05/27/19 20:54 78 97 05/27/19 20:49 76 96 05/27/19 20:45 82 127/76 05/27/19 20:44 71 97 05/27/19 20:39 76 94 05/27/19 20:34 74 96 05/27/19 20:33 71 129/77 05/27/19 20:31 81 128/103 H 05/27/19 20:30 20 05/27/19 20:29 72 97 05/27/19 20:24 78 97 05/27/19 20:19 70 97
[2019-05-28] MEDS: PRENATAL VITAMIN 1 TAB PO SCH (08:33)
[2019-05-28] MEDS: DOCUSATE SODIUM 100 MG CAP PO SCH ×2 (08:34→21:35)
[2019-05-28] MEDS ORDERED: bisacodyL 5 MG TABEC PO SCH (20:00)
[2019-05-29] MEDS: LEVOTHYROXINE SODIUM 137 MCG TABLET PO SCH (05:38)
[2019-05-29] MEDS: IBUPROFEN 600 MG TAB PO PRN ×2 (05:38→10:25)
--- NOTE | 2019-05-29 08:24 | Obstetrical Progress Note ---
Date of Service May 29, 2019 Assessment & Plan (1) Post-dates : 34yo at 40.6 weeks GA. s/p day 2 Doing well and stable for discharge (2) Encounter for supervision of normal in multigravida, antepartum: (3) Hypothyroid in , antepartum: Subjective Ambulation: ambulating normally Voiding: no voiding problems Passing Gas:: Yes Diet Tolerance:: regular diet Lochia:: Small Feeding Type:: breast feeding Physical Exam Constitutional WD/WN, vitals as above Respiratory normal respiratory effort; no respiratory distress and no labored breathing Gastrointestinal (Abdomen) Inspection/Auscultation: abdomen normal to inspection; abdomen not distended Percussion/Palpation: abdomen soft; abdomen nontender, no guarding and abdomen not rigid Genitourinary OB Exam Abdomen: + fundal height Fundus: + firm and + relation to umbilicus (Below); not tender and not boggy Results & Data Vital Signs (Past 12 Hours) Vital Signs Temp Pulse Resp BP Pulse Ox 05/29/19 07:46 36.5 C 69 20 121/80 98 05/28/19 23:55 36.5 C 84 18 121/81 97 05/28/19 20:40 36.3 C L 82 20 128/87 98
[2019-05-29] MEDS: DOCUSATE SODIUM 100 MG CAP PO SCH (08:54)
[2019-05-29] MEDS: PRENATAL VITAMIN 1 TAB PO SCH (08:54)
== END 2019-05-29 10:55 | disposition home or self-care (01) | DRG 807 ==
LOC: OPB 09:49 → 4S1 09:52 → 4S2 23:59